=== PATIENT | female | born 1950 | race Caucasian/White ===

== ENCOUNTER → 2017-01-24 | Outpatient (CLI) | payer MEDICARE, BC ==
--- NOTE | 2017-01-24 10:46 | MM ---
Reason for exam: follow-up at short interval from prior study. Last mammogram was performed 8 months ago. History: Patient is postmenopausal and history of other cancer. Family history of breast cancer in 2 maternal aunts. Taking other hormone for 2 years beginning at age 63. Physical Findings: Nurse Summary: less that 0.5cm nodule in the left breast (nurse kp). MG 3D Diag Mammo W/Cad LT CC and MLO view(s) were taken of the left breast. Prior study comparison: May 17, 2016, bilateral MG 3d screening mammo w/cad. May 16, 2015, bilateral MG screening mammo w CAD. There are scattered fibroglandular densities. Left nodule improved. These results were verbally communicated with the patient and result sheet given to the patient on 01/24/17. ASSESSMENT: Benign, BI-RAD 2 RECOMMENDATION: Return to routine screening mammogram schedule for both breasts. Back on schedule April 2017. Manage patient on a clinical basis.
== END | disposition home or self-care (01) ==
LOC: RADMAMWWP 09:19
PROVIDERS: ATTEND Family Medicine
DX: R92.8 Other abnormal and inconclusive findings on diagnostic imaging of breast (principal)
CPT/HCPCS: G0206; G0279

== ENCOUNTER → 2017-05-14 | Outpatient (CLI) | payer MEDICARE, BC ==
--- NOTE | 2017-05-14 15:24 | US ---
EXAMINATION TYPE: US thyroid st tissue head/neck DATE OF EXAM: 05/14/2017 COMPARISON: 03/17/2016 CLINICAL HISTORY: E04.2 Nontoxic Multinodular Goiter. GLAND SIZE: Right Lobe: 4.9 x 1.1 x 1.8 cm Overall Parenchyma: mildly heterogeneous Left Lobe: 3.8 x 1.3 x 1.2 cm Overall Parenchyma: mildly heterogeneous Isthmus Thickness: 0.4 cm NODULES RIGHT: # of nodules measured on right: 0 LEFT: # of nodules measured on left: 3 1. 0.7 X 0.3 x 0.4 cm anechoic cystic nodule at the mid pole with well-defined margins. This nodul e is wider than tall and shows no intranodular vascularity. Prior size: 0.6 x 0.5 x 0.3 cm 2. 0.5 X 0.4 x 0.4 cm hypoechoic solid nodule at the mid pole with poorly defined margins. This nod ule is wider than tall and shows no intranodular vascularity. Prior size: 0.6 x 0.3 x 0.3 cm 3. 0.3 X 0.2 x 0.3 cm hypoechoic solid nodule at the lower pole with well-defined margins. This nod ule is wider than tall and shows no intranodular vascularity. Prior size:0.3 X 0.2 x 0.3 cm ISTHMUS: # of nodules measured in the isthmus: No nodules seen Bilateral neck scanned, no evidence of lymphadenopathy. IMPRESSION: Essentially stable subcentimeter thyroid nodularity.
== END | disposition home or self-care (01) ==
LOC: RADUSWWP 14:21
PROVIDERS: ATTEND Family Medicine
DX: E04.2 Nontoxic multinodular goiter (principal)
CPT/HCPCS: 76536

== ENCOUNTER → 2017-06-04 | Outpatient (CLI) | payer MEDICARE, BC ==
--- NOTE | 2017-06-04 15:24 | BD ---
EXAMINATION TYPE: MG DEXA axial skeleton. DATE OF EXAM: 06/04/2017 COMPARISON: DEXA bone scan May 16, 2015 CLINICAL HISTORY: Postmenopausal female Height: 5 FT 7 1/2 IN Weight: 178 FRAX RISK QUESTIONS: Alcohol (3 or more units per day): NO Family History (Parent hip fracture): NO Glucocorticoids (More than 3mos): NO (Ex: prednisone, prednisolone, methylprednisolone, dexamethasone, and hydrocortisone). History of Fracture in Adulthood: NO Secondary Osteoporosis: 1. Type 1 Diabetes: NO 2. Hyperthyroidism: NO 3. Menopause before 45: NO 4. Malnutrition: NO 5. Chronic liver disease: NO Rheumatoid Arthritis: NO Current Tobacco Use: NO RISK FACTORS HISTORY OF: Active: YES Postmenopausal woman: AGE 52 MEDICATIONS: Osteoporosis Medications: YES Which medication: EVISTA How Lon YEARS Additional Medications: EVISTA,ZOCOR,SIMVASTATIN,HYDROCHLOROTHIAZIDE Additional History: EXAM MEASUREMENTS: Bone mineral densitometry was performed using the [employer] System. Bone mineral density as measured about the Lumbar spine is: ----- L1-L4(G/cm2): 0.976 T Score Values are as follows: ----- L2: -2.0 ----- L3: -1.8 ----- L4: -1.6 ----- L1-L4: -1.7 Bone mineral density has: Decreased -4.0% since study of: 2014 Bone mineral density about the R hip (g/cm2): 0.977 Bone mineral density about the L hip (g/cm2): 0.963 T Score values are as follows: -----R Neck: -0.4 -----L Neck: -0.5 -----R Total: -1.2 -----L Total: -1.1 Bone mineral density has: Decreased -1.9% since study of: 2014 IMPRESSION: Osteopenia (T Score between -2.5 and -1 as noted by T score values in the low back remains present. B one density is slightly decreased or diminished from prior study. There is slightly increased risk of fracture and the patient may be considered for treatment. Re-Screen 2-5 years. NOTE: T-SCORE=SD OF THE YOUNG ADULT MEAN.
--- NOTE | 2017-06-06 09:29 | MM ---
Reason for exam: screening (asymptomatic). Last mammogram was performed 4 months ago. History: Patient is postmenopausal and history of other cancer. Family history of breast cancer in 2 maternal aunts. Taking other hormone for 2 years beginning at age 63. Physical Findings: A clinical breast exam by your physician is recommended on an annual basis and results should be correlated with mammographic findings. MG 3D Screening Mammo W/Cad Bilateral CC and MLO view(s) were taken. Prior study comparison: January 24, 2017, left breast MG 3d diag mammo w/cad LT. May 17, 2016, bilateral MG 3d screening mammo w/cad. There are scattered fibroglandular densities. No significant changes when compared with prior studies. ASSESSMENT: Negative, BI-RAD 1 RECOMMENDATION: Routine screening mammogram of both breasts in 1 year.
== END ==
LOC: RADMAMWWP 13:03
PROVIDERS: ATTEND Family Medicine
DX: Z12.31 Encounter for screening mammogram for malignant neoplasm of breast (principal); M85.80 Other specified disorders of bone density and structure, unspecified site; Z78.0 Asymptomatic menopausal state
CPT/HCPCS: 77080; 77063; G0202

== ENCOUNTER → 2018-06-05 | Outpatient (CLI) | payer MEDICARE, BC ==
--- NOTE | 2018-06-06 11:39 | MM ---
Reason for exam: screening (asymptomatic). Last mammogram was performed 1 year ago. History: Patient is postmenopausal and history of other cancer. Family history of breast cancer in 2 maternal aunts. Taking other hormone for 2 years beginning at age 63. Physical Findings: A clinical breast exam by your physician is recommended on an annual basis and results should be correlated with mammographic findings. MG 3D Screening Mammo W/Cad Bilateral CC and MLO view(s) were taken. Prior study comparison: June 04, 2017, bilateral MG 3d screening mammo w/cad. January 24, 2017, left breast MG 3d diag mammo w/cad LT. The breast tissue is heterogeneously dense. This may lower the sensitivity of mammography. There are benign appearing round calcifications in the left breast. There is no discrete abnormality. ASSESSMENT: Benign, BI-RAD 2 RECOMMENDATION: Routine screening mammogram of both breasts in 1 year.
== END | disposition home or self-care (01) ==
LOC: RADMAMWWP 09:44
PROVIDERS: ATTEND Family Medicine
DX: Z12.31 Encounter for screening mammogram for malignant neoplasm of breast (principal)
CPT/HCPCS: 77063; 77067

== ENCOUNTER → 2019-06-08 | Outpatient (CLI) | payer BC, MEDICARE ==
--- NOTE | 2019-06-08 19:31 | BD ---
EXAMINATION TYPE: Axial Bone Density DATE OF EXAM: 06/08/2019 COMPARISON: 2017 CLINICAL HISTORY: 68-year-old female postmenopausal screening without HRT Height: 67 Weight: 178 FRAX RISK QUESTIONS: Alcohol (3 or more units per day): no Family History (Parent hip fracture): no Glucocorticoids (More than 3mos): no (Ex: prednisone, prednisolone, methylprednisolone, dexamethasone, and hydrocortisone). History of Fracture in Adulthood: no Secondary Osteoporosis: 1. Type 1 Diabetes: no 2. Hyperthyroidism: no 3. Menopause before 45: no 4. Malnutrition: no 5. Chronic liver disease: no Rheumatoid Arthritis: no Current Tobacco Use: no RISK FACTORS HISTORY OF: Family History of Osteoporosis: yes Active: yes Diet low in dairy products/other sources of calcium: no Postmenopausal woman: yes Take estrogen and/or progesterone medications: no Lost more than 2 inches in height since high school: no Frequent falls: no Poor Health: no Hyperparathyroidism: no Adrenal Insufficiency: no MEDICATIONS: Prednisone or other steroids: no Thyroid Medications: no Osteoporosis Medications: not now Which medication: Evista, about 3 years Additional Medications: none to note Additional History: none to note EXAM MEASUREMENTS: Bone mineral densitometry was performed using the [employer]. Bone mineral density as measured about the Lumbar spine is: ----- L1-L4(G/cm2): 0.972 T Score Values are as follows: ----- L2: -2.1 ----- L3: -2.0 ----- L4: -1.4 ----- L1-L4: -1.7 Bone mineral density has: Decreased -0.1% since study of: 06/04/2017 Bone mineral density about the R hip (g/cm2): 0.927 Bone mineral density about the L hip (g/cm2): 0.934 T Score values are as follows: -----R Neck: -0.8 -----L Neck: -0.7 -----R Total: -1.5 -----L Total: -1.2 Bone mineral density has: Decreased -3.5% since study of: 06/04/2017 IMPRESSION: Osteopenia (T Score between -2.5 and -1). There is slightly increased risk of fracture and the patient may be considered for treatment. Re-Screen 2-5 years. NOTE: T-SCORE=SD OF THE YOUNG ADULT MEAN.
--- NOTE | 2019-06-09 11:51 | MM ---
Reason for exam: screening (asymptomatic). Last mammogram was performed 1 year ago. History: Patient is postmenopausal and history of other cancer. Family history of breast cancer in 2 maternal aunts. Taking other hormone for 2 years beginning at age 63. Physical Findings: A clinical breast exam by your physician is recommended on an annual basis and results should be correlated with mammographic findings. MG 3D Screening Mammo W/Cad Bilateral CC and MLO view(s) were taken. Prior study comparison: June 05, 2018, bilateral MG 3d screening mammo w/cad. June 04, 2017, bilateral MG 3d screening mammo w/cad. There are scattered fibroglandular densities. There are benign appearing round dystrophic calcifications in the left breast. There is no discrete abnormality. ASSESSMENT: Benign, BI-RAD 2 RECOMMENDATION: Routine screening mammogram of both breasts in 1 year.
== END | disposition home or self-care (01) ==
LOC: RADMAMWWP 10:07
PROVIDERS: ATTEND Family Medicine
DX: Z12.31 Encounter for screening mammogram for malignant neoplasm of breast (principal); M85.88 Other specified disorders of bone density and structure, other site; Z78.0 Asymptomatic menopausal state
CPT/HCPCS: 77063; 77067; 77080

== ENCOUNTER 2020-03-29 08:16 | Day surgery (SDC) | payer MEDICARE ==
[2020-03-23 15:49] VITALS: BMI 27.6
[~2020-03-29 08:16] MED LIST: LACTATED RINGERS 1,000 ML IV SCH; LIDOCAINE 1% (10MG/ML) FOR IV START INTRADERMA PRN
[2020-03-29 09:08] VITALS: TEMP 96.8
[2020-03-29] MEDS ORDERED: PROPOFOL 10 MG/ML 20 ML VIAL IV ONE (09:59)
--- NOTE | 2020-03-29 10:02 | P.GSHP ---
History of Present Illness H&P Date: 03/29/20 Chief Complaint: screening Patient here today for screening colonoscopy. Last colonoscopy 7 years ago. That study was normal. No bowel complaints. No family history of colon cancer. Past Medical History Past Medical History: GERD/Reflux, Hyperlipidemia Additional Past Medical History / Comment(s): water retention, Osteoporosis, seasonal allergies History of Any Multi-Drug Resistant Organisms: None Reported Past Surgical History: Cholecystectomy, Tonsillectomy Additional Past Surgical History / Comment(s): Ganglion cyst removal from wrist, COLONOSCOPY Past Anesthesia/Blood Transfusion Reactions: No Reported Reaction Smoking Status: Never smoker - Past Family History Mother Family Medical History: No Reported History, Dialysis Medications and Allergies Home Medications Medication Instructions Recorded Confirmed Type Aspirin EC [Ecotrin] 81 mg PO HS 05/19/14 03/29/20 History Cholecalciferol [Vitamin D3] 2,000 unit PO HS 05/19/14 03/29/20 History Cranberry Conc/C/Bacill Coag 1 tab PO DAILY 05/19/14 03/29/20 History [Cranberry Tablet] Hydrochlorothiazide [Hydrodiuril] 25 mg PO DAILY PRN 05/19/14 03/29/20 History Multivitamins, Thera [Multivitamin] 1 tab PO DAILY 05/19/14 03/29/20 History Raloxifene [Evista] 60 mg PO DAILY 05/19/14 03/29/20 History Simvastatin 40 mg PO HS 05/19/14 03/29/20 History Levocetirizine Dihydrochloride 5 mg PO DAILY 03/23/20 03/29/20 History [Xyzal] Allergies Allergy/AdvReac Type Severity Reaction Status Date / Time No Known Allergies Allergy Verified 03/29/20 08:56 Surgical - Exam Vital Signs Temp Pulse Resp BP Pulse Ox 96.8 F L 86 18 141/70 98 03/29/20 09:03 03/29/20 09:03 03/29/20 09:03 03/29/20 09:03 03/29/20 09:03 Physical exam: General: Well-developed, well-nourished HEENT: Normocephalic, sclerae nonicteric Abdomen: Nontender, nondistended Extremities: No edema Neuro: Alert and oriented Assessment and Plan (1) Colon cancer screening Narrative/Plan: Will proceed with colonoscopy Current Visit: Yes Status: Acute Code(s): Z12.11 - ENCOUNTER FOR SCREENING FOR MALIGNANT NEOPLASM OF COLON SNOMED Code(s): 253558286
--- NOTE | 2020-03-29 10:22 | P.PCN ---
Date of Procedure: 03/29/20 Procedure(s) Performed: PREOPERATIVE DIAGNOSIS: Colon cancer screening POSTOPERATIVE DIAGNOSIS: Mild left-sided colitis, extensive diverticulosis, tortuous colon PROCEDURE: Colonoscopy with biopsy ANESTHESIA: [facility] [place] SURGEON: Dixon Riddle M.D. SPECIMENS: Left sided colitis ENDOSCOPIC PROCEDURE: The patient was placed on the endoscopy table in the left decubitus position. The Olympus colonoscope was inserted into the anus and passed under direct visualization to the base of the cecum. The appendiceal o rifice was visualized. From that point the scope was slowly withdrawn inspecting all surfaces carefully. There were no neoplastic inflammatory or polypoid lesions throughout the cecum, ascending, and transverse colon. In the descending colon and sigmoid there was inflammatory changes that were somewhat mild and non-circumferential. 2-3 small superficial ulcerations were noted. Biopsies were taken. Patient had extensive left-sided diverticulosis with tortuosity as well. Digital rectal examination was normal. The patient was taken to the recovery room in stable condition per anesthesia guidelines. RECOMMENDATIONS: Await biopsy results. Follow up colonoscopy 10 years.
[2020-03-29 10:44] VITALS: BP 148/96; PULSE 67; RESP 16
== END 2020-03-29 11:00 ==
LOC: ORWHC2ENDO 08:16
PROVIDERS: ATTEND Surgery
DX: Z12.11 Encounter for screening for malignant neoplasm of colon (principal); K51.50 Left sided colitis without complications; K57.30 Diverticulosis of large intestine without perforation or abscess without bleeding; Q43.9 Congenital malformation of intestine, unspecified; E78.5 Hyperlipidemia, unspecified; K21.9 Gastro-esophageal reflux disease without esophagitis; J30.2 Other seasonal allergic rhinitis; M81.0 Age-related osteoporosis without current pathological fracture; Z79.82 Long term (current) use of aspirin; Z79.899 Other long term (current) drug therapy; Z90.49 Acquired absence of other specified parts of digestive tract; Z90.89 Acquired absence of other organs
CPT/HCPCS: 45380; J2704; 88305

== ENCOUNTER → 2021-02-15 | Outpatient (CLI) | payer MEDICARE ==
--- NOTE | 2021-02-16 10:21 | MM ---
Reason for exam: screening (asymptomatic). Last mammogram was performed 1 year and 8 months ago. History: Patient is postmenopausal and history of other cancer. Family history of breast cancer in 2 maternal aunts. Taking other hormone for 2 years beginning at age 63. Physical Findings: A clinical breast exam by your physician is recommended on an annual basis and results should be correlated with mammographic findings. MG 3D Screening Mammo W/Cad Bilateral CC and MLO view(s) were taken. Prior study comparison: June 08, 2019, bilateral MG 3d screening mammo w/cad. June 05, 2018, bilateral MG 3d screening mammo w/cad. There are scattered fibroglandular densities. There are benign appearing round dystrophic calcifications in the left breast. There is no discrete abnormality. ASSESSMENT: Benign, BI-RAD 2 RECOMMENDATION: Routine screening mammogram of both breasts in 1 year.
== END | disposition home or self-care (01) ==
LOC: RADMAMWWP 09:48
PROVIDERS: ATTEND Family Medicine
DX: Z12.31 Encounter for screening mammogram for malignant neoplasm of breast (principal); Z78.0 Asymptomatic menopausal state; Z80.3 Family history of malignant neoplasm of breast
CPT/HCPCS: 77063; 77067

== ENCOUNTER → 2022-02-14 | Outpatient (CLI) | payer MEDICARE ==
--- NOTE | 2022-02-14 11:56 | US ---
EXAMINATION TYPE: US duplex aorta DATE OF EXAM: 02/14/2022 COMPARISON: NONE CLINICAL HISTORY: Z13.6 AAA screening. EXAM MEASUREMENTS: Abdominal Aorta: Proximal: 2.2 x 2.3cm Mid: 1.7 x 2.0cm Distal: 1.4 x 1.8cm Right Iliac: 1.0 x 1.1cm Left Iliac: 0.9 x 1.1cm No AAA seen IMPRESSION: 1. No suspicious aneurysmal dilatation abdominal aorta by ultrasound
--- NOTE | 2022-02-14 15:59 | BD ---
EXAMINATION TYPE: Axial Bone Density DATE OF EXAM: 02/14/2022 COMPARISON: NONE CLINICAL HISTORY: 71 years year old Female. ICD-10 CODE: Z78.0 Post menopausal w/o HRT Height: 66 Weight: 175.6 FRAX RISK QUESTIONS: Alcohol (3 or more units per day): NO Family History (Parent hip fracture): NO Glucocorticoids (More than 3mos): NO History of Fracture in Adulthood: NO Secondary Osteoporosis: 1. Type 1 Diabetes: NO 2. Hyperthyroidism: NO 3. Menopause before 45: NO 4. Malnutrition: NO 5. Chronic liver disease: NO Rheumatoid Arthritis: NO Current Tobacco Use: NO RISK FACTORS HISTORY OF: Hip Fracture (Right/Left): NO Spine Fracture: NO History of Wrist Fracture: NO Surgery to Spine/Hip(right/left)/Wrist (right/left): NO Family History of Osteoporosis: MOM Active: YES Diet low in dairy products/other sources of calcium: NO Postmenopausal woman: YES Take estrogen and/or progesterone medications: EVISTA, ESTRADIOL How lon YEARS Lost more than 2 inches in height since high school: NO Frequent falls: NO Poor Health: NO Hyperparathyroidism: NO Adrenal Insufficiency: NO MEDICATIONS: Prednisone or other steroids: NO Thyroid Medications: NO Osteoporosis Medications: NO Which medication: How Long: Additional Medications: SIMVASTATIN, EVISTA, ESTRADIOL, VIT D, MULTI VIT, ZINC Additional History: EXAM MEASUREMENTS: Bone mineral densitometry was performed using the [employer] System. Bone mineral density as measured about the Lumbar spine is: ----- L1-L4(G/cm2): 0.952 T Score Values are as follows: ----- L1: -1.8 ----- L2: -2.0 ----- L3: -2.1 ----- L4: -1.9 ----- L1-L4: -1.9 Bone mineral density has: DECREASED 2.0 % since study of: 06/08/2019 Bone mineral density about the R hip (g/cm2): 0.978 Bone mineral density about the L hip (g/cm2): 0.916 T Score values are as follows: -----R Neck: -0.4 -----L Neck: -0.9 -----R Total: -1.5 -----L Total: -1.8 Bone mineral density has: DECREASED 3.4 % since study of: 06/08/2019 FRAX%s: The graph provided illustrates a 8.7% chance for a major osteoporotic fx and a 0.9% chance fo r the hips probability for fx in 10 years time. IMPRESSION: Osteopenia (T Score between -2.5 and -1). There is slightly increased risk of fracture and the patient may be considered for treatment. Re-Screen 2-5 years. NOTE: T-SCORE=SD OF THE YOUNG ADULT MEAN.
== END | disposition home or self-care (01) ==
LOC: RADUSWWP 09:40
PROVIDERS: ATTEND Family Medicine
DX: Z13.6 Encounter for screening for cardiovascular disorders (principal); M85.89 Other specified disorders of bone density and structure, multiple sites; Z78.0 Asymptomatic menopausal state
CPT/HCPCS: 77080; 93979

== ENCOUNTER → 2022-03-06 | Outpatient (CLI) | payer MEDICARE ==
--- NOTE | 2022-03-07 11:25 | MM ---
Reason for Exam: Screening (asymptomatic). Last mammogram was performed 1 year(s) and 1 month(s) ago. Patient History: Menarche at age 12. First Full-Term at age 20. Postmenopausal. Other cancer. Maternal aunt had breast cancer at or over age 50. Maternal aunt had breast cancer. Risk Values: Lorena 5 year model risk: 1.6%. NCI Lifetime model risk: 4.3%. Prior Study Comparison: 06/05/2018 Bilateral Screening Mammogram, [facility]. 06/08/2019 Bilateral Screening Mammogram, [facility]. 02/15/2021 Bilateral Screening Mammogram, [facility]. Tissue Density: There are scattered fibroglandular densities. Findings: Analyzed By CAD. And a few scattered benign-appearing round and dystrophic calcifications along with vascular calcification in the left breast is redemonstrated. Benign-appearing bilateral axillary lymph nodes are again seen. There is no suspicious group of microcalcifications or new suspicious mass in either breast. Overall Assessment: Benign, BI-RAD 2 Management: Screening Mammogram of both breasts in 1 year. A clinical breast exam by your physician is recommended on an annual basis and results should be correlated with mammographic findings. Electronically signed and approved by: Fili Weller M.D.
== END | disposition home or self-care (01) ==
LOC: RADMAMWWP 11:15
PROVIDERS: ATTEND Family Medicine
DX: Z12.31 Encounter for screening mammogram for malignant neoplasm of breast (principal); Z78.0 Asymptomatic menopausal state; Z80.3 Family history of malignant neoplasm of breast
CPT/HCPCS: 77063; 77067

== ENCOUNTER → 2023-03-08 | Outpatient (CLI) | payer MEDICARE ==
--- NOTE | 2023-03-11 07:48 | MM ---
Reason for Exam: Screening (asymptomatic). Last screening mammogram was performed 12 month(s) ago. Patient History: Menarche at age 12. First Full-Term at age 20. Postmenopausal. Other cancer. Maternal aunt had breast cancer at or over age 50. Maternal aunt had breast cancer. Risk Values: Lorena 5 year model risk: 1.6%. NCI Lifetime model risk: 4.1%. Prior Study Comparison: 06/08/2019 Bilateral Screening Mammogram, [facility]. 02/15/2021 Bilateral Screening Mammogram, [facility]. 03/06/2022 Bilateral MG 3D screening mammo w/cad, [facility]. Tissue Density: The breast tissue is almost entirely fat. Findings: Analyzed By CAD. There is no suspicious group of microcalcifications or new suspicious mass in either breast. Overall Assessment: Negative, BI-RAD 1 Management: Screening Mammogram of both breasts in [address] [facility] will attempt to contact patient to return for supplemental views and ultrasound if indicated. Patient should continue monthly self-breast exams. A clinical breast exam by your physician is recommended on an annual basis. This exam should not preclude additional follow-up of suspicious palpable abnormalities. Note on Lorena scores and lifetime risk: 1. A Lorena score greater than 3% is considered moderate risk. If this is the case, consider specialist referral to assess eligibility for a risk reducing agent. 2. If overall lifetime risk for the development of breast cancer is 20% or higher, the patient may qualify for future screening with alternating mammogram and breast MRI. Electronically signed and approved by: Juan Carlos Valdovinos DO
== END | disposition home or self-care (01) ==
LOC: RADMAMWWP 10:12
PROVIDERS: ATTEND Family Medicine
DX: Z12.31 Encounter for screening mammogram for malignant neoplasm of breast (principal); Z78.0 Asymptomatic menopausal state; Z80.3 Family history of malignant neoplasm of breast
CPT/HCPCS: 77063; 77067

== ENCOUNTER → 2024-03-10 | Outpatient (CLI) | payer MEDICARE ==
--- NOTE | 2024-03-11 10:22 | MM ---
Reason for Exam: Screening (asymptomatic). Last screening mammogram was performed 12 month(s) ago. Patient History: Menarche at age 12. First Full-Term at age 20. Postmenopausal. Other cancer. Maternal aunt had breast cancer at or over age 50. Maternal aunt had breast cancer. Risk Values: Lorena 5 year model risk: 1.6%. NCI Lifetime model risk: 3.9%. Prior Study Comparison: 02/15/2021 Bilateral Screening Mammogram, [facility]. 03/06/2022 Bilateral MG 3D screening mammo w/cad, [facility]. 03/08/2023 Bilateral MG 3D screening mammo w/cad, [facility]. Tissue Density: There are scattered areas of fibroglandular density. Findings: Analyzed By CAD. There is no suspicious group of microcalcifications or new suspicious mass in either breast. Overall Assessment: Negative, BI-RAD 1 Management: Screening Mammogram of both breasts in 1 year. . Patient should continue monthly self-breast exams. A clinical breast exam by your physician is recommended on an annual basis. This exam should not preclude additional follow-up of suspicious palpable abnormalities. Note on Lorena scores and lifetime risk: 1. A Lorena score greater than 3% is considered moderate risk. If this is the case, consider specialist referral to assess eligibility for a risk reducing agent. 2. If overall lifetime risk for the development of breast cancer is 20% or higher, the patient may qualify for future screening with alternating mammogram and breast MRI. Electronically signed and approved by: Federico De Luna M.D. Radiologis
--- NOTE | 2024-03-11 17:40 | BD ---
EXAMINATION TYPE: Axial Bone Density DATE OF EXAM: 03/10/2024 CLINICAL HISTORY: 73 years old Female. ICD-10 CODE: Z78.0 ASYMP [place] Height: 65.2 in Weight: 181 lbs FRAX RISK QUESTIONS: Family History (Parent hip fracture): yes father RISK FACTORS MEDICATIONS: Osteoporosis Medications: Which medication: Evista How Lon years EXAM MEASUREMENTS: Bone mineral densitometry was performed using the [employer] System. Bone mineral density as measured about the Lumbar spine is: ----- L1-L4(G/cm2): 0.980 T Score Values are as follows: ----- L1: -2.0 ----- L2: -1.9 ----- L3: -1.7 ----- L4: -1.3 ----- L1-L4: -1.7 Z Score Values are as follows: ----- L1: -0.9 ----- L2: -0.7 ----- L3: -0.6 ----- L4: -0.1 ----- L1-L4: -0.5 Bone mineral density has: Increased 2.9% since study of: 02/14/2022 Bone mineral density about the R hip (g/cm2): 0.749 Bone mineral density about the L hip (g/cm2): 0.801 T Score values are as follows: -----R Neck: -1.2 -----L Neck: -1.1 -----R Total: -2.0 -----L Total: -1.6 Z Score values are as follows: -----R Neck: 0.3 -----L Neck: 0.3 -----R Total: -0.8 -----L Total: -0.4 Bone mineral density has: Decreased -3.7% since study of: 02/14/2022 FRAX%s: The graph provided illustrates a 14.9% chance for a major osteoporotic fx and a 5.0% chance f or the hips probability for fx in 10 years time. IMPRESSION: Osteopenia (T Score between -2.5 and -1). There is slightly increased risk of fracture and the patient may be considered for treatment. Re-Screen 2-5 years. NOTE: T-SCORE=SD OF THE YOUNG ADULT MEAN.
== END | disposition home or self-care (01) ==
LOC: RADMAMWWP 09:55
PROVIDERS: ATTEND Family Medicine
DX: Z12.31 Encounter for screening mammogram for malignant neoplasm of breast (principal); Z78.0 Asymptomatic menopausal state; M85.80 Other specified disorders of bone density and structure, unspecified site; Z13.820 Encounter for screening for osteoporosis; Z80.3 Family history of malignant neoplasm of breast
CPT/HCPCS: 77063; 77067; 77080

== ENCOUNTER → 2024-06-05 | Outpatient (CLI) | payer MEDICARE ==
--- NOTE | 2024-06-05 16:36 | XR ---
EXAMINATION TYPE: XR ribs bilat w pa chest xray DATE OF EXAM: 06/05/2024 4:23 PM CLINICAL INDICATION: Female, 73 years old with history of R07.81 PLEURODYNIA; [facility] COMPARISON: None TECHNIQUE: XR ribs bilat w pa chest xray; Frontal and oblique views of the ribs with frontal chest ra diograph. FINDINGS: The ribs have a normal appearance. No evidence of fracture. Overall, the lungs are clear. The cardiac silhouette is normal in size. The remaining osseous structures are intact. Right upper quadrant cholecystectomy clips. Mild multilevel degeneration changes of the spine. IMPRESSION: No displaced rib fracture definitely visualized.
== END | disposition home or self-care (01) ==
LOC: RADXRMAIN 15:49
PROVIDERS: ATTEND Family Medicine
DX: R07.81 Pleurodynia (principal)
CPT/HCPCS: 71111

== ENCOUNTER → 2024-07-16 | Outpatient (CLI) | payer MEDICARE ==
--- NOTE | 2024-07-16 15:21 | US ---
EXAMINATION TYPE: US venous doppler duplex LE BI DATE OF EXAM: 07/16/2024 3:10 PM COMPARISON: NONE CLINICAL INDICATION: Female, 73 years old with history of bilateral LE; R60.0 LOCALIZED EDEMA; Right leg swelling, Pain, Swelling TECHNIQUE: The lower extremity deep venous system is examined utilizing real time linear array sonog roel with graded compression, color doppler sonography, and spectral doppler. SIDE PERFORMED: Bilateral FINDINGS: VESSELS IMAGED: Common Femoral Vein Deep Femoral Vein Greater Saphenous Vein * Femoral Vein Popliteal Vein Small Saphenous Vein * Proximal Calf Veins (* superficial vessels) Right Leg: Appears negative for DVT Left Leg: Appears negative for DVT IMPRESSION: No evidence for DVT within the bilateral lower extremities imaged from the groin to the upper calves. [facility], , 07/16/2024 3:18 PM
== END | disposition home or self-care (01) ==
LOC: RADUSWWP 14:15
PROVIDERS: ATTEND Family Medicine
CPT/HCPCS: 93970

== ENCOUNTER → 2025-03-11 | Outpatient (CLI) | payer MEDICARE ==
--- NOTE | 2025-03-11 14:30 | MM ---
Reason for Exam: Screening (asymptomatic). Last screening mammogram was performed 12 month(s) ago. Patient History: Menarche at age 12. First Full-Term at age 20. Postmenopausal. Other cancer. Maternal aunt had breast cancer at or over age 50. Maternal aunt had breast cancer. Risk Values: [place] 5 year model risk: 1.6%. NCI Lifetime model risk: 3.7%. Prior Study Comparison: 06/05/2018 Bilateral Screening Mammogram, [facility]. 06/08/2019 Bilateral Screening Mammogram, [facility]. 02/15/2021 Bilateral Screening Mammogram, [facility]. 03/06/2022 Bilateral MG 3D screening mammo w/cad, [facility]. 03/08/2023 Bilateral MG 3D screening mammo w/cad, [facility]. 03/10/2024 Bilateral MG 3D screening mammo w/cad, [facility]. Tissue Density: There are scattered areas of fibroglandular density. Findings: Analyzed By CAD. There is no suspicious group of microcalcifications or new suspicious mass in either breast. Overall Assessment: Negative, BI-RAD 1 Management: Screening Mammogram of both breasts in 1 year. Patient should continue monthly self-breast exams. A clinical breast exam by your physician is recommended on an annual basis. This exam should not preclude additional follow-up of suspicious palpable abnormalities. Note on Lorena scores and lifetime risk: 1. A [place] score greater than 3% is considered moderate risk. If this is the case, consider specialist referral to assess eligibility for a risk reducing agent. 2. If overall lifetime risk for the development of breast cancer is 20% or higher, the patient may qualify for future screening with alternating mammogram and breast MRI. [facility], , 03/11/2025 2:27 PM. Electronically signed and approved by: Wayne Null M.D. Radiologist
== END | disposition home or self-care (01) ==
LOC: RADMAMWWP 09:48
PROVIDERS: ATTEND Family Medicine
DX: Z12.31 Encounter for screening mammogram for malignant neoplasm of breast (principal); R92.323 Mammographic fibroglandular density, bilateral breasts; Z78.0 Asymptomatic menopausal state; Z80.3 Family history of malignant neoplasm of breast
CPT/HCPCS: 77063; 77067